=== PATIENT | female | born 1950 | race Caucasian/White ===

== ENCOUNTER 2020-05-18 01:45 | Inpatient (IN) ==
[2020-05-18] MEDS ORDERED: SODIUM CHLORIDE 0.9% 1000ML 500 ML IV ONE (02:21)
--- NOTE | 2020-05-18 02:25 | Emergency Department Note ---
History of Present Illness General Chief complaint: Urinary Symptoms Stated complaint: Urinary Symptoms Time Seen by Provider: 05/18/20 02:04 History of Present Illness Maximum Pain Intensity: 2 This is a 69-year-old female that presents to the emergency department via private vehicle with complaints of "urinary symptoms". The patient is concerned she may have urosepsis. Patient has a history of this and is often asymptomatic with this. 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 The patient notes that she is tested for Covid on a weekly basis. Her last test was Saturday. She notes that she is only notified with positive results and has had no positives thus far. The patient notes that she has not felt well over the past few days, and notes that her urine is dark and she is also had diarrhea for the past 3 days. She notes no dysuria, back pain or abdominal pain. No fevers, chills, chest pain, cough, loss of taste or smell. Patient notes no new shortness of breath. Home Medications Medication Instructions Recorded Confirmed Type No Known Home Medications 05/18/20 05/18/20 History Allergies Allergy/AdvReac Type Severity Reaction Status Date / Time No Known Allergies Allergy Verified 05/18/20 03:54 Past Med/Surg History Medical History Essential hypertension Hypercalcemia Hyperlipidemia Hyperparathyroidism Nephrolithiasis Nontoxic multinodular goiter Occlusion and stenosis of left carotid artery Raynaud's disease Surgical History S/P cataract extraction Family History (Updated 06/16/19 @ 11:56 by Monserrat Zamora MA) Mother Coronary heart disease Father Thrombocytopenia Social History Smoking Status: Never smoker Preferred Language: Niuean marital status: / Current Living Situation: Alone Feels Safe at Home: Yes Review of Systems A total of 10 systems reviewed and were otherwise negative Physical Exam Vital Signs Vital Signs - 24 hr 05/18/20 01:50 05/18/20 02:55 05/18/20 03:06 Temperature 37.5 C Temperature Source Oral Pulse Rate 96 H Pulse Rate [Right Ear Lobe] 88 Respiratory Rate 22 22 Respiratory Depth Normal Blood Pressure 132/75 Blood Pressure [Right Arm] 139/75 Blood Pressure Mean 94 Blood Pressure Mean [Right Arm] 96 Pulse Oximetry 95 87 L Oxygen Delivery Method Room Air Nasal Cannula Room Air Oxygen Flow Rate 3 Sepsis Recent Fever Within 48 Hours No Sepsis New/Unexplained Change in Mental Status No Sepsis Action Taken by Nursing No Action Required 05/18/20 04:15 Temperature Temperature Source Pulse Rate Pulse Rate [Right Ear Lobe] 87 Respiratory Rate 22 Respiratory Depth Blood Pressure Blood Pressure [Right Arm] 124/75 Blood Pressure Mean Blood Pressure Mean [Right Arm] 91 Pulse Oximetry 94 Oxygen Delivery Method Nasal Cannula Oxygen Flow Rate 4 Sepsis Recent Fever Within 48 Hours Sepsis New/Unexplained Change in Mental Status Sepsis Action Taken by Nursing VITAL SIGNS - Vital signs and nursing notes were reviewed. Afebrile. Hypoxic. GENERAL - 69-year-old female appearing her stated age who is in no acute distress but appears fatigued. Communicates well with provider and answers questions appropriately. SKIN - Without rashes. HEAD - NC/AT. EYES - PERRL with EOMI bilaterally. Sclera anicteric. EARS - No deformities of external structures noted on gross examination bilaterally. NOSE - Midline and without cyanosis. No epistaxis or purulent drainage noted. MOUTH/OROPHARYNX - Without perioral cyanosis. NECK - Neck with FROM. No nuchal rigidity. LUNGS - Chest wall symmetric without accessory muscle use, intercostals retractions, or central cyanosis. Normal vesicular breath sounds CTA B/L. No wheezes, rales, or rhonchi appreciated. CARDIAC - RRR with S1/S2. No murmur, rubs, or gallops appreciated. EXTREMITIES - No clubbing or peripheral cyanosis. No pretibial edema present. +5/5 strength noted in UE/LE bilaterally. NEUROLOGIC - Cranial nerves II through XII grossly intact. Sensory intact to light touch throughout. PSYCH - A&O, and cooperates fully with examiner. Pt is very pleasant and interacts well with examiner. Course Administered Medications Lactated Ringer's (Lr) 1,000 mls @ 80 mls/hr IV .[id number] Stop: 05/18/20 18:59 Last Admin: 05/18/20 07:01 Dose: 80 mls/hr Documented by: [id number] Discontinued Medications Sodium Chloride (Nss 1000ml) 500 mls @ 999 mls/hr IV .[id number] Stop: 05/18/20 02:51 Last Infusion: 05/18/20 05:33 Dose: 0 mls/hr Documented by: [id number] Admin: 05/18/20 04:20 Dose: 999 mls/hr Documented by: [id number] Medical Decision Making Laboratory Data Result diagrams: 05/18/20 03:51 05/18/20 03:51 Lab Results 05/18/20 05/18/20 05/18/20 Range/Units 02:38 02:38 03:51 WBC 4.58 L (4.8-10.8) K/uL RBC 4.35 (4.2-5.4) M/uL Hgb 13.7 (12.0-16.0) g/dL Hct 41.9 (37-47) % MCV 96.3 (80-100) fL MCH 31.5 (25-34) pg MCHC 32.7 (32-36) g/dL RDW Std Deviation 49.5 H (36.4-46.3) fL RDW Coeff of Sean 14.0 (11.5-14.5) % Plt Count 173 (130-400) K/uL MPV 12.2 H (7.4-10.4) fL Immature Gran % (Auto) 0.0 % Neut % (Auto) 80.1 % Lymph % (Auto) 14.2 % [place] % (Auto) 5.5 % Eos % (Auto) 0.0 % Baso % (Auto) 0.2 % Neut # (Auto) 3.67 (1.4-6.5) K/uL Lymph # (Auto) 0.65 L (1.2-3.4) K/uL [place] # (Auto) 0.25 (0.11-0.59) K/uL Eos # (Auto) 0.00 (0-0.5) K/uL Baso # (Auto) 0.01 (0-0.2) K/uL Immature Gran # (Auto) 0.00 (0.00-0.02) K/uL Sodium (136-145) mmol/L Potassium (3.5-5.1) mmol/L Chloride (98-107) mmol/L Carbon Dioxide (21-32) mmol/L Anion Gap (3-11) BUN (7-18) mg/dl Creatinine (0.6-1.2) mg/dl Est Cr Clr Drug Dosing ml/min Est GFR ( Amer) Est GFR (Non-Af Amer) BUN/Creatinine Ratio (10-20) Glucose (70-99) mg/dl Lactate (0.4-2.0) mmol/L Calcium (8.5-10.1) mg/dl Total Bilirubin (0.2-1) mg/dl AST (15-37) U/L ALT (12-78) U/L Alkaline Phosphatase (45-117) U/L Total Protein (6.4-8.2) gm/dl Albumin (3.4-5.0) gm/dl Globulin (2.5-4.0) gm/dl Albumin/Globulin Ratio (0.9-2) Procalcitonin (0-0.5) ng/ml Urine Color Urine Appearance (Clear) Urine pH (4.5-7.5) Ur Specific [place] (1.000-1.030) Urine Protein (Negative) Urine Glucose (UA) (Negative) Urine Ketones (Negative) Urine Blood (Negative) Urine Nitrite (Negative) Urine Bilirubin (Negative) Urine Urobilinogen (Negative) Ur Leukocyte Esterase (Negative) Urine WBC (Auto) (0-5) /hpf Urine RBC (Auto) (0-4) /hpf U Hyaline Cast (Auto) (0-5) /lpf U Epithel Cells (Auto) (0-5) /lpf Urine Bacteria (Auto) (Negative) COVID-19 Eval Order Covid19 IDNow Count includes the [facility] SARS-CoV-2, RNA, NAAT POSITIVE A* (NEGATIVE) 05/18/20 05/18/20 05/18/20 Range/Units 03:51 03:51 03:51 WBC (4.8-10.8) K/uL RBC (4.2-5.4) M/uL Hgb (12.0-16.0) g/dL Hct (37-47) % MCV (80-100) fL MCH (25-34) pg MCHC (32-36) g/dL RDW Std Deviation (36.4-46.3) fL RDW Coeff of Sean (11.5-14.5) % Plt Count (130-400) K/uL MPV (7.4-10.4) fL Immature Gran % (Auto) % Neut % (Auto) % Lymph % (Auto) % [place] % (Auto) % Eos % (Auto) % Baso % (Auto) % Neut # (Auto) (1.4-6.5) K/uL Lymph # (Auto) (1.2-3.4) K/uL [place] # (Auto) (0.11-0.59) K/uL Eos # (Auto) (0-0.5) K/uL Baso # (Auto) (0-0.2) K/uL Immature Gran # (Auto) (0.00-0.02) K/uL Sodium 138 (136-145) mmol/L Potassium 3.6 (3.5-5.1) mmol/L Chloride 109 H (98-107) mmol/L Carbon Dioxide 22 (21-32) mmol/L Anion Gap 7.0 (3-11) BUN 14 (7-18) mg/dl Creatinine 0.88 (0.6-1.2) mg/dl Est Cr Clr Drug Dosing 62.5 ml/min Est GFR ( Amer) 78.8 Est GFR (Non-Af Amer) 68.0 BUN/Creatinine Ratio 15.5 (10-20) Glucose 101 H (70-99) mg/dl Lactate 1.1 (0.4-2.0) mmol/L Calcium 9.4 (8.5-10.1) mg/dl Total Bilirubin 0.9 (0.2-1) mg/dl AST 23 (15-37) U/L ALT 12 (12-78) U/L Alkaline Phosphatase 71 (45-117) U/L Total Protein 7.3 (6.4-8.2) gm/dl Albumin 2.9 L (3.4-5.0) gm/dl Globulin 4.4 H (2.5-4.0) gm/dl Albumin/Globulin Ratio 0.7 L (0.9-2) Procalcitonin < 0.05 (0-0.5) ng/ml Urine Color Urine Appearance (Clear) Urine pH (4.5-7.5) Ur Specific [place] (1.000-1.030) Urine Protein (Negative) Urine Glucose (UA) (Negative) Urine Ketones (Negative) Urine Blood (Negative) Urine Nitrite (Negative) Urine Bilirubin (Negative) Urine Urobilinogen (Negative) Ur Leukocyte Esterase (Negative) Urine WBC (Auto) (0-5) /hpf Urine RBC (Auto) (0-4) /hpf U Hyaline Cast (Auto) (0-5) /lpf U Epithel Cells (Auto) (0-5) /lpf Urine Bacteria (Auto) (Negative) COVID-19 Eval Order SARS-CoV-2, RNA, NAAT (NEGATIVE) 05/18/20 Range/Units 04:00 WBC (4.8-10.8) K/uL RBC (4.2-5.4) M/uL Hgb (12.0-16.0) g/dL Hct (37-47) % MCV (80-100) fL MCH (25-34) pg MCHC (32-36) g/dL RDW Std Deviation (36.4-46.3) fL RDW Coeff of Sean (11.5-14.5) % Plt Count (130-400) K/uL MPV (7.4-10.4) fL Immature Gran % (Auto) % Neut % (Auto) % Lymph % (Auto) % [place] % (Auto) % Eos % (Auto) % Baso % (Auto) % Neut # (Auto) (1.4-6.5) K/uL Lymph # (Auto) (1.2-3.4) K/uL [place] # (Auto) (0.11-0.59) K/uL Eos # (Auto) (0-0.5) K/uL Baso # (Auto) (0-0.2) K/uL Immature Gran # (Auto) (0.00-0.02) K/uL Sodium (136-145) mmol/L Potassium (3.5-5.1) mmol/L Chloride (98-107) mmol/L Carbon Dioxide (21-32) mmol/L Anion Gap (3-11) BUN (7-18) mg/dl Creatinine (0.6-1.2) mg/dl Est Cr Clr Drug Dosing ml/min Est GFR ( Amer) Est GFR (Non-Af Amer) BUN/Creatinine Ratio (10-20) Glucose (70-99) mg/dl Lactate (0.4-2.0) mmol/L Calcium (8.5-10.1) mg/dl Total Bilirubin (0.2-1) mg/dl AST (15-37) U/L ALT (12-78) U/L Alkaline Phosphatase (45-117) U/L Total Protein (6.4-8.2) gm/dl Albumin (3.4-5.0) gm/dl Globulin (2.5-4.0) gm/dl Albumin/Globulin Ratio (0.9-2) Procalcitonin (0-0.5) ng/ml Urine Color Dark Yellow Urine Appearance Cloudy A (Clear) Urine pH 5.5 (4.5-7.5) Ur Specific [place] 1.021 (1.000-1.030) Urine Protein 2+ H (Negative) Urine Glucose (UA) Negative (Negative) Urine Ketones Trace H (Negative) Urine Blood 2+ H (Negative) Urine Nitrite Positive A (Negative) Urine Bilirubin Negative (Negative) Urine Urobilinogen Negative (Negative) Ur Leukocyte Esterase 2+ H (Negative) Urine WBC (Auto) >30 H (0-5) /hpf Urine RBC (Auto) 10-30 H (0-4) /hpf U Hyaline Cast (Auto) 1-5 (0-5) /lpf U Epithel Cells (Auto) 10-20 H (0-5) /lpf Urine Bacteria (Auto) 4+ H (Negative) COVID-19 Eval Order SARS-CoV-2, RNA, NAAT (NEGATIVE) MDM Narrative Patient was seen and evaluated as above in room A04. Review was performed of nursing notes and vital signs. I did review pertinent previous visits and patient history. After obtaining a thorough history and physical examination the above work up was performed. She presents to us today with concern of urosepsis noting a history of this. She notes that she is often asymptomatic for this. No chest pain or shortness of breath. 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 She was last tested on Saturday and was negative she believes. On examination the patient does appear to be fatigued. No increased work of breathing. Pulse ox was obtained and was 87% on room air. She was started on oxygen. Labs were drawn. There is mild decrease white blood cell count 4.58 without anemia. No emergent metabolic disturbance. Covid testing positive. Pro-Nicolas negative. Urinalysis is concerning for UTI. She will be started on ceftriaxone per medicine team. I believe that she requires admission for further evaluation and management noting her hypoxia in the setting of Covid as well as UTI. Please refer to further documentation regarding her stay. Case was discussed with the attending physician. Chest x-ray concerning for diffuse patchy mild infiltrates. No definite consolidation. GCS: 15 In the evaluation and treatment of this patient the following differential diagnoses were entertained: COVID-19, pneumonia, MT, PE, UTI, sepsis, among others. Impression & Plan COVID-19, Hypoxia, UTI (urinary tract infection) Discharge Plan Visit Data Chief Complaint: Urinary Symptoms Stated Complaint: Urinary Symptoms ED Provider: Rhoda Guzmán ED Midlevel Provider: Lambert Dickey Discharge Problem: COVID-19, Hypoxia, UTI (urinary tract infection) Patient Disposition: Admitted As Inpatient Condition: Good Discharge Instructions Interventions: ED Discharge Assessment Last Done: 05/18/20 05:39
[2020-05-18 04:03] LABS: Basophils # (auto) 0.01 K/uL (0-0.2); Basophils % (auto) 0.2 %; Hematocrit (blood only) 41.9 % (37-47); Hemoglobin 13.7 g/dL (12.0-16.0); Lymphocytes # (auto) 0.65 K/uL (1.2-3.4); Lymphocytes % (auto) 14.2 %; Mean Corpuscular Hemoglobin 31.5 pg (25-34); Mean Corpuscular Hgb Conc 32.7 g/dL (32-36); Mean Corpuscular Volume 96.3 fL (80-100); Mean Platelet Volume 12.2 fL (7.4-10.4); Monocytes # (auto) 0.25 K/uL (0.11-0.59); Monocytes % (auto) 5.5 %; Neutrophils # (auto) 3.67 K/uL (1.4-6.5); Neutrophils % (auto) 80.1 %; Platelet Count 173 K/uL (130-400); RDW Standard Deviation 49.5 fL (36.4-46.3); Red Blood Count 4.35 M/uL (4.2-5.4); White Blood Count 4.58 K/uL (4.8-10.8)
[2020-05-18 04:17] LABS: Potassium 3.6 mmol/L (3.5-5.1)
[2020-05-18 04:19] LABS: Albumin Level 2.9 gm/dl (3.4-5.0); BUN Creatinine Ratio 15.5 (10-20); Calcium 9.4 mg/dl (8.5-10.1); Creatinine Clr Calc Pharmacy 62.5 ml/min; Est GFR (African American) 78.8
[2020-05-18 04:22] LABS: Albumin Globulin Ratio 0.7 (0.9-2); Bilirubin,Total 0.9 mg/dl (0.2-1); Globulin 4.4 gm/dl (2.5-4.0); Total Protein 7.3 gm/dl (6.4-8.2)
[2020-05-18 04:29] LABS: Appearance Urine Cloudy (Clear); Bacteria Urine Automated 4+ (Negative); Bilirubin Urine Negative (Negative); Blood Urine 2+ (Negative); Color Urine Dark Yellow; Glucose Urine UA Negative (Negative); Ketones Urine Trace (Negative); Leukocyte Esterase Urine 2+ (Negative); Nitrite Urine Positive (Negative); Protein Urine 2+ (Negative); Specific Gravity Urine 1.021 (1.000-1.030); Urobilinogen Urine Negative (Negative); WBC Urine Automated >30 /hpf (0-5); pH Urine 5.5 (4.5-7.5)
--- NOTE | 2020-05-18 04:53 | History & Physical Report ---
Date of Service May 18, 2020 Assessment & Plan (1) COVID-19: 69yo female with Covid-19 infection, hypoxic on arrival now doing well on supplemental O2 - 94% on 4L NC -Admit to medical -Maintain precautions, airborne and contact -Check inflammatory markers - ESR, CRP, Ferritin, Ddimer, LDH -Dexamethasone 6mg IV daily -Pepcid 20mg IV daily -Zinc 220mg po daily -Patient is reluctant to receive convalescent plasma or Remdesivir at this time. She has a non-specific autoimmune disorder and is concerned that these medications may cause a problem. Liver and renal function are intact. -Patient expresses desire to go home with O2 if possible Present on Admission?: Yes (2) UTI (urinary tract infection): Patient with +UA, denies urinary complaints. States that she sometimes becomes ill from UTIs -Follow culture -Ceftriaxone 1gm IV daily Present on Admission?: Yes (3) Hyperlipidemia: Chronic. Stable -No home medications listed Present on Admission?: Yes (4) Essential hypertension: Chronic. Stable -No home medications listed -Continue to monitor F/E/N - LR at 80mL/hr x 1 liter, electrolytes WNL, Heart healthy diet as tolerated Ppx - Lovenox 40 BID Code - FULL Dispo - Admit to medical Present on Admission?: Yes History of Present Illness Chief Complaint: diarrhea Primary Care Provider: Celine Hammond MD Monserrat Castillo is a pleasant 69yo C female with history of HTN, HLP presenting with Covid-19. 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 She reports multiple staff members and residents positive for Covid-19. Patient developed watery diarrhea two days ago. She has mild shortness of breath. She is tested routinely at work and was last tested 4 days ago and was negative. Denies CP/Palpitations/cough/loss of taste or smell Patient's saturations in triage found to be 77% on room air - however, she states that because of her Raynaud's her saturations are always low. An additional pulse oximeter was placed and she was found to be 84% on room air with adequate wave form. She improved with supplemental O2 and is currently 94% on 4L. Patient wishes to be discharged home as soon as possible and is confident that she can care for herself at home. Allergies Allergy/AdvReac Type Severity Reaction Status Date / Time No Known Allergies Allergy Verified 05/18/20 03:54 Home Medications Medication Instructions Recorded Confirmed Type No Known Home Medications 05/18/20 05/18/20 History Past Med/Surg History Medical History (Updated 05/18/20 @ 04:52 by Sydni Cohen DO) Essential hypertension Hypercalcemia Hyperlipidemia Hyperparathyroidism Nephrolithiasis Nontoxic multinodular goiter Occlusion and stenosis of left carotid artery Raynaud's disease Surgical History (Updated 03/04/19 @ 22:59 by Celine Hammond MD) S/P cataract extraction Family History (Updated 06/16/19 @ 11:56 by Monserrat Zamora MA) Mother Coronary heart disease Father Thrombocytopenia Social History (Updated 04/22/19 @ 10:52 by Michelle Higgins MA) Smoking Status: Never smoker Preferred Language: [place] Islander marital status: / Current Living Situation: Alone Feels Safe at Home: Yes Review of Systems Review of Systems: All systems reviewed & are unremarkable except as noted in HPI & below Physical Exam Physical Exam: General: patient resting comfortably, NAD, non-toxic in appearance, AA&O x 4 Skin: warm, dry, intact, no rashes or lesions HEENT: NC/AT, PERRL, EOMI, anicteric sclera, conjunctiva without injection, external ear normal to inspection and nontender, nares patent, moist mucus membranes, dentition intact, no oropharyngeal lesions, neck supple, trachea midline, no LAD, no thyromegaly, no JVD Heart: +S1/S2, regular, no m/r/g Lungs: equal air entry bilaterally, no rales/rhonchi/wheezes Abd: +BS, soft, NT/ND, no masses/organomegaly/ascites Ext: warm, 2+ pulses in UE/LE bilaterally, no clubbing/cyanosis or edema Neuro: nonfocal, patient AA&O x 4, speech intact, no facial droop, moving all extremities on command with equal strength 5/5 Results & Data Results & Data ([facility]) Vital Signs (Past 12 Hours) Vital Signs Temp Pulse Pulse Resp BP BP Pulse Ox 05/18/20 04:15 87 22 124/75 94 05/18/20 03:06 87 L 05/18/20 02:55 88 22 139/75 95 05/18/20 01:50 37.5 C 96 H 22 132/75 Laboratory Results Lab Results 05/18/20 05/18/20 05/18/20 Range/Units 02:38 02:38 03:51 WBC 4.58 L (4.8-10.8) K/uL RBC 4.35 (4.2-5.4) M/uL Hgb 13.7 (12.0-16.0) g/dL Hct 41.9 (37-47) % MCV 96.3 (80-100) fL MCH 31.5 (25-34) pg MCHC 32.7 (32-36) g/dL RDW Std Deviation 49.5 H (36.4-46.3) fL RDW Coeff of Sean 14.0 (11.5-14.5) % Plt Count 173 (130-400) K/uL MPV 12.2 H (7.4-10.4) fL Immature Gran % (Auto) 0.0 % Neut % (Auto) 80.1 % Lymph % (Auto) 14.2 % [place] % (Auto) 5.5 % Eos % (Auto) 0.0 % Baso % (Auto) 0.2 % Neut # (Auto) 3.67 (1.4-6.5) K/uL Lymph # (Auto) 0.65 L (1.2-3.4) K/uL [place] # (Auto) 0.25 (0.11-0.59) K/uL Eos # (Auto) 0.00 (0-0.5) K/uL Baso # (Auto) 0.01 (0-0.2) K/uL Immature Gran # (Auto) 0.00 (0.00-0.02) K/uL Sodium (136-145) mmol/L Potassium (3.5-5.1) mmol/L Chloride (98-107) mmol/L Carbon Dioxide (21-32) mmol/L Anion Gap (3-11) BUN (7-18) mg/dl Creatinine (0.6-1.2) mg/dl Est Cr Clr Drug Dosing ml/min Est GFR ( Amer) Est GFR (Non-Af Amer) BUN/Creatinine Ratio (10-20) Glucose (70-99) mg/dl Lactate (0.4-2.0) mmol/L Calcium (8.5-10.1) mg/dl Total Bilirubin (0.2-1) mg/dl AST (15-37) U/L ALT (12-78) U/L Alkaline Phosphatase (45-117) U/L Total Protein (6.4-8.2) gm/dl Albumin (3.4-5.0) gm/dl Globulin (2.5-4.0) gm/dl Albumin/Globulin Ratio (0.9-2) Urine Color Urine Appearance (Clear) Urine pH (4.5-7.5) Ur Specific [place] (1.000-1.030) Urine Protein (Negative) Urine Glucose (UA) (Negative) Urine Ketones (Negative) Urine Blood (Negative) Urine Nitrite (Negative) Urine Bilirubin (Negative) Urine Urobilinogen (Negative) Ur Leukocyte Esterase (Negative) Urine WBC (Auto) (0-5) /hpf Urine RBC (Auto) (0-4) /hpf U Hyaline Cast (Auto) (0-5) /lpf U Epithel Cells (Auto) (0-5) /lpf Urine Bacteria (Auto) (Negative) COVID-19 Eval Order Covid19 IDNow atMMIC SARS-CoV-2, RNA, NAAT POSITIVE A* (NEGATIVE) 05/18/20 05/18/20 05/18/20 Range/Units 03:51 03:51 04:00 WBC (4.8-10.8) K/uL RBC (4.2-5.4) M/uL Hgb (12.0-16.0) g/dL Hct (37-47) % MCV (80-100) fL MCH (25-34) pg MCHC (32-36) g/dL RDW Std Deviation (36.4-46.3) fL RDW Coeff of Sean (11.5-14.5) % Plt Count (130-400) K/uL MPV (7.4-10.4) fL Immature Gran % (Auto) % Neut % (Auto) % Lymph % (Auto) % [place] % (Auto) % Eos % (Auto) % Baso % (Auto) % Neut # (Auto) (1.4-6.5) K/uL Lymph # (Auto) (1.2-3.4) K/uL [place] # (Auto) (0.11-0.59) K/uL Eos # (Auto) (0-0.5) K/uL Baso # (Auto) (0-0.2) K/uL Immature Gran # (Auto) (0.00-0.02) K/uL Sodium 138 (136-145) mmol/L Potassium 3.6 (3.5-5.1) mmol/L Chloride 109 H (98-107) mmol/L Carbon Dioxide 22 (21-32) mmol/L Anion Gap 7.0 (3-11) BUN 14 (7-18) mg/dl Creatinine 0.88 (0.6-1.2) mg/dl Est Cr Clr Drug Dosing 62.5 ml/min Est GFR ( Amer) 78.8 Est GFR (Non-Af Amer) 68.0 BUN/Creatinine Ratio 15.5 (10-20) Glucose 101 H (70-99) mg/dl Lactate 1.1 (0.4-2.0) mmol/L Calcium 9.4 (8.5-10.1) mg/dl Total Bilirubin 0.9 (0.2-1) mg/dl AST 23 (15-37) U/L ALT 12 (12-78) U/L Alkaline Phosphatase 71 (45-117) U/L Total Protein 7.3 (6.4-8.2) gm/dl Albumin 2.9 L (3.4-5.0) gm/dl Globulin 4.4 H (2.5-4.0) gm/dl Albumin/Globulin Ratio 0.7 L (0.9-2) Urine Color Dark Yellow Urine Appearance Cloudy A (Clear) Urine pH 5.5 (4.5-7.5) Ur Specific [place] 1.021 (1.000-1.030) Urine Protein 2+ H (Negative) Urine Glucose (UA) Negative (Negative) Urine Ketones Trace H (Negative) Urine Blood 2+ H (Negative) Urine Nitrite Positive A (Negative) Urine Bilirubin Negative (Negative) Urine Urobilinogen Negative (Negative) Ur Leukocyte Esterase 2+ H (Negative) Urine WBC (Auto) >30 H (0-5) /hpf Urine RBC (Auto) 10-30 H (0-4) /hpf U Hyaline Cast (Auto) 1-5 (0-5) /lpf U Epithel Cells (Auto) 10-20 H (0-5) /lpf Urine Bacteria (Auto) 4+ H (Negative) COVID-19 Eval Order SARS-CoV-2, RNA, NAAT (NEGATIVE) Code Status & VTE Plan VTE Prophylaxis Plan VTE Prophylaxis will be ordered: Yes PG Care Time/CCT Total # of Minutes Spent Total Time Spent with Patient: Total time spent is greater than 50% in coordination of care (as documented) at patient's floor/unit and/or counseling patient: Coding Level of Care Code 27300 Initial Inpt Care Lvl 3 Diagnoses COVID-19 U07.1 UTI (urinary tract infection) N39.0; R31.9 Urinary tract infection type: site unspecified Hematuria presence: with hematuria Hyperlipidemia E78.5 Hyperlipidemia type: unspecified Essential hypertension I10 (1) Hyperlipidemia Hyperlipidemia type: unspecified Qualified Code(s): E78.5 - Hyperlipidemia, unspecified (2) UTI (urinary tract infection) Urinary tract infection type: site unspecified Hematuria presence: with hematuria Qualified Code(s): N39.0 - Urinary tract infection, site not specified; R31.9 - Hematuria, unspecified
[2020-05-18] MEDS ORDERED: ACETAMINOPHEN 325 MG TAB PO PRN (06:30)
[2020-05-18] MEDS ORDERED: ONDANSETRON INJ 2 MG/ML 2 ML VIAL IV PRN (06:30)
[2020-05-18] MEDS ORDERED: DEXAMETHASONE SOD INJ 10 MG/ML VIAL IV SCH (06:30)
[2020-05-18] MEDS ORDERED: LACTATED RINGER'S 1,000 ML IV SCH (06:30)
--- NOTE | 2020-05-18 08:08 | XRay Report ---
XR chest 1V portable HISTORY: covid +, hypoxia COMPARISON: None. FINDINGS: Cardiac silhouette is mildly enlarged. No pleural effusions. No pneumothorax. Old, healed l eft-sided rib fractures. There is mild diffuse interstitial thickening. This most pronounced within t he right lung. This could represent mild asymmetric congestive change. Right perihilar hazy appearanc e could be due to the interstitial thickening or developing airspace opacities. IMPRESSION: 1. Cardiomegaly with mild congestive change. 2. Right perihilar hazy appearance could be due to interstitial thickening or developing airspace opa cities. ACT 112: Negative or not required by law. Electronically signed by: Troy Morrissey M.D. 05/18/2020 8:07 AM
[2020-05-18 08:11] LABS: INR 1.2 (0.9-1.1); Prothrombin Time 12.8 Seconds (9.0-12.0)
[2020-05-18] MEDS: ZINC SULFATE 220 MG CAPSULE PO SCH (08:11)
[2020-05-18] MEDS: ENOXAPARIN INJ 40 MG/0.4 ML SYR SQ SCH ×2 (08:11→21:49)
[2020-05-18] MEDS: DEXAMETHASONE SOD PHOSPHATE 6 MG in SYRINGE 0 ML IV SCH (08:11)
[2020-05-18] MEDS: FAMOTIDINE 20 MG in SYRINGE 3 ML IV SCH (08:11)
[2020-05-18 08:19] LABS: C Reactive Protein 1.92 mg/dl (0-0.29); D Dimer 1010 ug/L FEU (0-500)
[2020-05-18] MEDS ORDERED: INFLUENZA VIRUS QUAD VACCINE 0.5 ML SYR IM ONE (08:24)
[2020-05-18] MEDS ORDERED: INFLUENZA ADMINISTRATION CHARGE ONE (08:24)
[2020-05-18] MEDS ORDERED: PNEUMOCOCCAL POLYSACCHARIDES 25 MCG/0.5 ML VIAL/SYR IM ONE (08:24)
[2020-05-18] MEDS ORDERED: PNEUMOCOCCAL ADMINISTRATION CHARGE ONE (08:24)
[2020-05-18] MEDS ORDERED: cefTRIAXone SODIUM 1,000 MG in DEXTROSE 5% 50 ML IV SCH (09:00)
[2020-05-18] MEDS ORDERED: REMDESIVIR 200 MG in SODIUM CHLORIDE 0.9% 210 ML IV STA (15:07)
[2020-05-18 16:11] LABS: Magnesium 2.1 mg/dl (1.8-2.4); Troponin I 0.073 ng/ml (0-0.045)
--- NOTE | 2020-05-18 16:53 | XRay Report ---
SINGLE VIEW CHEST CLINICAL HISTORY: Worsening rales on physical examination. Covid. FINDINGS: An AP, portable, upright chest radiograph is compared to study performed earlier the same d ay 05/18/2020. The examination is degraded by portable technique, apical lordotic positioning, and pa tient rotation. The heart is enlarged noting atherosclerotic calcification of the thoracic aorta. Int erstitial haziness is similar to previous. No large pleural effusion or pneumothorax is seen. The ske letal structures are osteopenic. The bony thorax is grossly intact. IMPRESSION: 1. Cardiomegaly with evidence of mild congestive failure. 2. Haziness of the interstitium is unchanged and may represent mild edema versus an infectious/inflam matory pneumonitis. Clinical correlation will be required. ACT 112: Negative or not required by law. Electronically signed by: Doug Bauman M.D. 05/18/2020 4:51 PM
[2020-05-18] MEDS ORDERED: POTASSIUM CHLORIDE CRTAB 20 MEQ TABCR PO STA (16:55)
[2020-05-18] MEDS ORDERED: FUROSEMIDE 20 MG in SYRINGE 0 ML IV ONE (17:15)
[2020-05-18] MEDS: SODIUM CHLORIDE 0.9% 10ML FLUSH IV SCH (18:41)
--- NOTE | 2020-05-18 20:25 | Hospitalist Progress Note ---
Date of Service May 18, 2020 Assessment & Plan (1) Pneumonia due to COVID-19 virus: Day #1 of decadron. AGREEABLE to convalescent plasma - risks/benefits discussed. Consent obtained. FDA-issued patient info sheet to be given. Start remdesivir. repeat cxr given worsening rales. (2) Acute respiratory failure with hypoxia: 2nd to COVID-19 pneumonia. see above. (3) UTI (urinary tract infection): increase rocephin to 2gm daily await culture (4) Hyperlipidemia: Chronic. Stable No home medications listed (5) Essential hypertension: Chronic. Stable/controlled, and No home medications listed (6) Acute diastolic (congestive) heart failure: has JVD on exam, and mild edema on chest x-ray. stop IVF. lasix 20mg IV x 1. consider echo. re-eval tomorrow. (7) Raynaud's disease: noted (8) DVT prophylaxis: lovenox 40mg BID due to COVID-19 infection & high risk of VTE Admission and Anticipated Discharge Date Admission Date: May 18, 2020 Subjective patient had O2 off when I came into the room. I checked her O2 sats on 2 oximeters - both registered 82-83%. she said "My oxygen is low many times. (??) I put 3 l NC back on her and O2 sats improved to 93%. we had lengthy discussion about plasma and remdesivir. she ultimately agreed to both. she reports ongoing diarrhea, poor appetite, cough, weakness. can't pinpoint exact date of illness but she tested negative at her workplace this past weekend. Physical Exam Constitutional: + ill appearing; no acute distress and no altered mental status ENMT: Mouth: + dry oral mucous membranes Respiratory: no respiratory distress Auscultation: + crackles (extensive left lung, mild right lung base); no wheezes Cardiovascular: Rate/Rhythm: regular rate and regular rhythm Heart Sounds: normal S1 and normal S2; no murmur Vessels: + JVD, posterior tibial pulses present and dorsalis pedis pulses present Extremities: + edema (trace b/l; left leg is larger than right leg ) Gastrointestinal (Abdomen): normal bowel sounds, soft, nontender, no hepatosplenomegaly Psychiatric: A+Ox3, euthymic affect Results & Data Results & Data ([facility]) Vital Signs (Past 12 Hours) Vital Signs Temp Pulse BP Pulse Ox 05/18/20 16:28 36.5 C 65 111/53 L 93 Laboratory Results Laboratory Results - last 24 hr 05/18/20 05/18/20 05/18/20 02:38 02:38 03:51 WBC 4.58 L RBC 4.35 Hgb 13.7 Hct 41.9 MCV 96.3 MCH 31.5 MCHC 32.7 RDW Std Deviation 49.5 H RDW Coeff of Sean 14.0 Plt Count 173 MPV 12.2 H Immature Gran % (Auto) 0.0 Neut % (Auto) 80.1 Lymph % (Auto) 14.2 [place] % (Auto) 5.5 Eos % (Auto) 0.0 Baso % (Auto) 0.2 Neut # (Auto) 3.67 Lymph # (Auto) 0.65 L [place] # (Auto) 0.25 Eos # (Auto) 0.00 Baso # (Auto) 0.01 Immature Gran # (Auto) 0.00 ESR PT INR D-Dimer Sodium Potassium Chloride Carbon Dioxide Anion Gap BUN Creatinine Est Cr Clr Drug Dosing Est GFR ( Amer) Est GFR (Non-Af Amer) BUN/Creatinine Ratio Glucose Lactate Calcium Magnesium Ferritin Total Bilirubin AST ALT Alkaline Phosphatase Lactate Dehydrogenase Troponin I C-Reactive Protein NT-Pro-B Natriuret Pep Total Protein Albumin Globulin Albumin/Globulin Ratio Procalcitonin Urine Color Urine Appearance Urine pH Ur Specific [place] Urine Protein Urine Glucose (UA) Urine Ketones Urine Blood Urine Nitrite Urine Bilirubin Urine Urobilinogen Ur Leukocyte Esterase Urine WBC (Auto) Urine RBC (Auto) U Hyaline Cast (Auto) U Epithel Cells (Auto) Urine Bacteria (Auto) COVID-19 Eval Order Covid19 [facility]Now [facility] SARS-CoV-2, RNA, NAAT POSITIVE A* Blood Type Antibody Screen 05/18/20 05/18/20 05/18/20 03:51 03:51 03:51 WBC RBC Hgb Hct MCV MCH MCHC RDW Std Deviation RDW Coeff of Sean Plt Count MPV Immature Gran % (Auto) Neut % (Auto) Lymph % (Auto) [place] % (Auto) Eos % (Auto) Baso % (Auto) Neut # (Auto) Lymph # (Auto) [place] # (Auto) Eos # (Auto) Baso # (Auto) Immature Gran # (Auto) ESR PT INR D-Dimer Sodium 138 Potassium 3.6 Chloride 109 H Carbon Dioxide 22 Anion Gap 7.0 BUN 14 Creatinine 0.88 Est Cr Clr Drug Dosing 62.5 Est GFR ( Amer) 78.8 Est GFR (Non-Af Amer) 68.0 BUN/Creatinine Ratio 15.5 Glucose 101 H Lactate 1.1 Calcium 9.4 Magnesium Ferritin Total Bilirubin 0.9 AST 23 ALT 12 Alkaline Phosphatase 71 Lactate Dehydrogenase Troponin I C-Reactive Protein NT-Pro-B Natriuret Pep Total Protein 7.3 Albumin 2.9 L Globulin 4.4 H Albumin/Globulin Ratio 0.7 L Procalcitonin < 0.05 Urine Color Urine Appearance Urine pH Ur Specific [place] Urine Protein Urine Glucose (UA) Urine Ketones Urine Blood Urine Nitrite Urine Bilirubin Urine Urobilinogen Ur Leukocyte Esterase Urine WBC (Auto) Urine RBC (Auto) U Hyaline Cast (Auto) U Epithel Cells (Auto) Urine Bacteria (Auto) COVID-19 Eval Order SARS-CoV-2, RNA, NAAT Blood Type Antibody Screen 05/18/20 05/18/20 05/18/20 04:00 07:23 07:23 WBC RBC Hgb Hct MCV MCH MCHC RDW Std Deviation RDW Coeff of Sean Plt Count MPV Immature Gran % (Auto) Neut % (Auto) Lymph % (Auto) [place] % (Auto) Eos % (Auto) Baso % (Auto) Neut # (Auto) Lymph # (Auto) [place] # (Auto) Eos # (Auto) Baso # (Auto) Immature Gran # (Auto) ESR 30 H PT 12.8 H INR 1.2 H D-Dimer 1010 H* Sodium Potassium Chloride Carbon Dioxide Anion Gap BUN Creatinine Est Cr Clr Drug Dosing Est GFR ( Amer) Est GFR (Non-Af Amer) BUN/Creatinine Ratio Glucose Lactate Calcium Magnesium Ferritin Total Bilirubin AST ALT Alkaline Phosphatase Lactate Dehydrogenase Troponin I C-Reactive Protein NT-Pro-B Natriuret Pep Total Protein Albumin Globulin Albumin/Globulin Ratio Procalcitonin Urine Color Dark Yellow Urine Appearance Cloudy A Urine pH 5.5 Ur Specific [place] 1.021 Urine Protein 2+ H Urine Glucose (UA) Negative Urine Ketones Trace H Urine Blood 2+ H Urine Nitrite Positive A Urine Bilirubin Negative Urine Urobilinogen Negative Ur Leukocyte Esterase 2+ H Urine WBC (Auto) >30 H Urine RBC (Auto) 10-30 H U Hyaline Cast (Auto) 1-5 U Epithel Cells (Auto) 10-20 H Urine Bacteria (Auto) 4+ H COVID-19 Eval Order SARS-CoV-2, RNA, NAAT Blood Type Antibody Screen 05/18/20 05/18/20 05/18/20 07:23 07:23 15:24 WBC RBC Hgb Hct MCV MCH MCHC RDW Std Deviation RDW Coeff of Sean Plt Count MPV Immature Gran % (Auto) Neut % (Auto) Lymph % (Auto) [place] % (Auto) Eos % (Auto) Baso % (Auto) Neut # (Auto) Lymph # (Auto) [place] # (Auto) Eos # (Auto) Baso # (Auto) Immature Gran # (Auto) ESR PT INR D-Dimer Sodium Potassium Chloride Carbon Dioxide Anion Gap BUN Creatinine Est Cr Clr Drug Dosing Est GFR ( Amer) Est GFR (Non-Af Amer) BUN/Creatinine Ratio Glucose Lactate Calcium Magnesium Ferritin 147.0 Total Bilirubin AST ALT Alkaline Phosphatase Lactate Dehydrogenase 302 H Troponin I C-Reactive Protein 1.92 H NT-Pro-B Natriuret Pep Total Protein Albumin Globulin Albumin/Globulin Ratio Procalcitonin Urine Color Urine Appearance Urine pH Ur Specific [place] Urine Protein Urine Glucose (UA) Urine Ketones Urine Blood Urine Nitrite Urine Bilirubin Urine Urobilinogen Ur Leukocyte Esterase Urine WBC (Auto) Urine RBC (Auto) U Hyaline Cast (Auto) U Epithel Cells (Auto) Urine Bacteria (Auto) COVID-19 Eval Order SARS-CoV-2, RNA, NAAT Blood Type A Positive Antibody Screen NEGATIVE 05/18/20 15:24 WBC RBC Hgb Hct MCV MCH MCHC RDW Std Deviation RDW Coeff of Sean Plt Count MPV Immature Gran % (Auto) Neut % (Auto) Lymph % (Auto) [place] % (Auto) Eos % (Auto) Baso % (Auto) Neut # (Auto) Lymph # (Auto) [place] # (Auto) Eos # (Auto) Baso # (Auto) Immature Gran # (Auto) ESR PT INR D-Dimer Sodium Potassium Chloride Carbon Dioxide Anion Gap BUN Creatinine Est Cr Clr Drug Dosing Est GFR ( Amer) Est GFR (Non-Af Amer) BUN/Creatinine Ratio Glucose Lactate Calcium Magnesium 2.1 Ferritin Total Bilirubin AST ALT Alkaline Phosphatase Lactate Dehydrogenase Troponin I 0.073 H* C-Reactive Protein NT-Pro-B Natriuret Pep 9478 H Total Protein Albumin Globulin Albumin/Globulin Ratio Procalcitonin Urine Color Urine Appearance Urine pH Ur Specific [place] Urine Protein Urine Glucose (UA) Urine Ketones Urine Blood Urine Nitrite Urine Bilirubin Urine Urobilinogen Ur Leukocyte Esterase Urine WBC (Auto) Urine RBC (Auto) U Hyaline Cast (Auto) U Epithel Cells (Auto) Urine Bacteria (Auto) COVID-19 Eval Order SARS-CoV-2, RNA, NAAT Blood Type Antibody Screen PG Care Time/CCT Total # of Minutes Spent Total Time Spent with Patient: Total time spent is greater than 50% in coordination of care (as documented) at patient's floor/unit and/or counseling patient: Coding Level of Care Code 93179 Subseq Hosp Care Lvl 3 Diagnoses Pneumonia due to COVID-19 virus U07.1; J12.89 Acute respiratory failure with hypoxia J96.01 UTI (urinary tract infection) N30.00 Hematuria presence: without hematuria Urinary tract infection type: acute cystitis Hyperlipidemia E78.5 Hyperlipidemia type: unspecified Essential hypertension I10 Acute diastolic (congestive) heart failure I50.31 Raynaud's disease I73.00 Raynaud?s-associated gangrene presence: without gangrene DVT prophylaxis Z29.9 (1) UTI (urinary tract infection) Hematuria presence: without hematuria Urinary tract infection type: acute cystitis Qualified Code(s): N30.00 - Acute cystitis without hematuria (2) Raynaud's disease Raynaud?s-associated gangrene presence: without gangrene Qualified Code(s): I73.00 - Raynaud's syndrome without gangrene (3) Hyperlipidemia Hyperlipidemia type: unspecified Qualified Code(s): E78.5 - Hyperlipidemia, unspecified
[2020-05-18] MEDS: cefTRIAXone SODIUM 2,000 MG in DEXTROSE 5% 50 ML IV SCH (21:49)
[2020-05-19 08:01] LABS: BUN Creatinine Ratio 18.1 (10-20); Calcium 10.4 mg/dl (8.5-10.1); Creatinine Clr Calc Pharmacy 51.6 ml/min; Est GFR (African American) 62.9; Est GFR (Non-African American) 54.3
[2020-05-19] MEDS: DEXAMETHASONE SOD PHOSPHATE 6 MG in SYRINGE 0 ML IV SCH (08:29)
[2020-05-19] MEDS: ENOXAPARIN INJ 40 MG/0.4 ML SYR SQ SCH ×2 (08:29→21:47)
[2020-05-19] MEDS: FAMOTIDINE 20 MG in SYRINGE 3 ML IV SCH (08:30)
[2020-05-19 08:40] LABS: Hematocrit (blood only) 47.3 % (37-47); Hemoglobin 15.3 g/dL (12.0-16.0); Mean Corpuscular Hemoglobin 31.5 pg (25-34); Mean Corpuscular Hgb Conc 32.3 g/dL (32-36); Mean Corpuscular Volume 97.5 fL (80-100); Mean Platelet Volume 12.8 fL (7.4-10.4); Platelet Count 216 K/uL (130-400); RDW Standard Deviation 49.7 fL (36.4-46.3); Red Blood Count 4.85 M/uL (4.2-5.4); White Blood Count 6.43 K/uL (4.8-10.8)
[2020-05-19 08:58] LABS: D Dimer 660 ug/L FEU (0-500)
[2020-05-19 09:01] LABS: Potassium 4.6 mmol/L (3.5-5.1)
[2020-05-19 09:05] LABS: Magnesium 2.3 mg/dl (1.8-2.4)
[2020-05-19] MEDS: ZINC SULFATE 220 MG CAPSULE PO SCH (09:22)
[2020-05-19] MEDS ORDERED: FUROSEMIDE 20 MG in SYRINGE 0 ML IV SCH (17:30)
[2020-05-19] MEDS: REMDESIVIR 100 MG in SODIUM CHLORIDE 0.9% 230 ML IV SCH (17:49)
[2020-05-19] MEDS: SODIUM CHLORIDE 0.9% 10ML FLUSH IV SCH (19:57)
--- NOTE | 2020-05-19 20:41 | Hospitalist Progress Note ---
Date of Service May 19, 2020 Assessment & Plan (1) Pneumonia due to COVID-19 virus: Day #2 of decadron. Day #2 of remdesivir. We had very lengthy discussion about convalescent plasma again today. Answered her questions and addressed her concerns. She is finally feeling comfortable about getting it - transfuse now, followed by lasix 20mg IV x 1. Consent obtained yesterday. FDA-issued patient info sheet given yesterday. (2) Acute respiratory failure with hypoxia: 2nd to COVID-19 pneumonia. see above. (3) UTI (urinary tract infection): 2nd to staph species cont IV rocephin 2gm daily await final culture (4) Hyperlipidemia: Chronic. Stable No home medications listed (5) Essential hypertension: Chronic. Stable/controlled, on no meds for such (6) Acute diastolic (congestive) heart failure: still with considerable b/l rales uncertain if rales are due to COVID-19, underlying ILD, or acute CHF could have all 3 Rx her COVID with meds above lasix again today consider advanced imaging (CT) to r/o chronic ILD or other lung disease (7) Raynaud's disease: noted (8) DVT prophylaxis: lovenox 40mg BID due to COVID-19 infection & high risk of VTE left message for son on his voicemail yesterday and again today total visit time 35 minutes today, >50% of which was spent counseling the patient at bedside Admission and Anticipated Discharge Date Admission Date: May 18, 2020 Subjective patient ended up refusing the plasma when it arrived from the [place] overnight. during the visit today she had numerous concerns & questions about the plasma. apparently her father had ITP and she is worried the plasma will cause ITP in her. she continues with mild RICH and cough. diarrhea improving. appetite improving. still w/ O2 requirement. denies abd pain or chest pain. Review of Systems Constitutional: + fatigue and + anorexia; no fever and no chills Respiratory: no wheezing Cardiovascular: no chest pain Gastrointestinal: no nausea and no vomiting Physical Exam Constitutional: + ill appearing; no acute distress and no altered mental status ENMT: external ear and nose normal, oropharynx normal Respiratory: no respiratory distress Auscultation: + crackles (extensive left lung, mild right lung base - modestly less rales on L today ); no wheezes Cardiovascular: Rate/Rhythm: regular rate and regular rhythm Heart Sounds: normal S1, normal S2, + gallop (s3) and + murmur (2/6 systolic LSB) Vessels: + JVD (mildly improved today ), posterior tibial pulses present and dorsalis pedis pulses present Extremities: + edema (trace b/l; left leg is larger than right leg ) Gastrointestinal (Abdomen): normal bowel sounds, soft, nontender, no hepatosplenomegaly Psychiatric: A+Ox3, euthymic affect Results & Data Results & Data ([facility]) Vital Signs (Past 12 Hours) Vital Signs Temp Pulse Pulse Resp BP BP Pulse Ox 05/19/20 19:55 36.8 C 72 18 90/62 L 93 05/19/20 19:10 36.8 C 72 18 107/78 94 05/19/20 18:10 36.8 C 70 18 105/70 92 05/19/20 17:40 36.5 C 60 18 105/52 L 90 05/19/20 17:25 36.6 C 70 18 98/67 L 92 05/19/20 17:07 36.8 C 70 20 109/70 93 05/19/20 17:03 36.8 C 70 20 116/73 92 05/19/20 17:02 70 L Laboratory Results Laboratory Results - last 24 hr 05/18/20 05/19/20 05/19/20 15:24 06:45 07:06 WBC 6.43 RBC 4.85 Hgb 15.3 Hct 47.3 H MCV 97.5 MCH 31.5 MCHC 32.3 RDW Std Deviation 49.7 H RDW Coeff of Sean 14.0 Plt Count 216 MPV 12.8 H D-Dimer Sodium 139 Potassium Chloride 109 H Carbon Dioxide 24 Anion Gap 6.0 BUN 19 H Creatinine 1.06 Est Cr Clr Drug Dosing 51.6 Est GFR ( Amer) 62.9 Est GFR (Non-Af Amer) 54.3 BUN/Creatinine Ratio 18.1 Glucose 101 H Calcium 10.4 H Magnesium AST ALT 12 Blood Type A Positive Antibody Screen NEGATIVE 05/19/20 05/19/20 07:06 07:10 WBC RBC Hgb Hct MCV MCH MCHC RDW Std Deviation RDW Coeff of Sean Plt Count MPV D-Dimer 660 H* Sodium Potassium 4.6 D Chloride Carbon Dioxide Anion Gap BUN Creatinine Est Cr Clr Drug Dosing Est GFR ( Amer) Est GFR (Non-Af Amer) BUN/Creatinine Ratio Glucose Calcium Magnesium 2.3 AST 21 ALT Blood Type Antibody Screen blood cx's negative PG Care Time/CCT Total # of Minutes Spent Total Time Spent with Patient: Total time spent is greater than 50% in coordination of care (as documented) at patient's floor/unit and/or counseling patient: Coding Level of Care Code 72417 Subseq Hosp Care Lvl 3 Diagnoses Pneumonia due to COVID-19 virus U07.1; J12.89 Acute respiratory failure with hypoxia J96.01 UTI (urinary tract infection) N30.00 Hematuria presence: without hematuria Urinary tract infection type: acute cystitis Hyperlipidemia E78.5 Hyperlipidemia type: unspecified Essential hypertension I10 Acute diastolic (congestive) heart failure I50.31 Raynaud's disease I73.00 Raynaud?s-associated gangrene presence: without gangrene DVT prophylaxis Z29.9 (1) UTI (urinary tract infection) Hematuria presence: without hematuria Urinary tract infection type: acute cystitis Qualified Code(s): N30.00 - Acute cystitis without hematuria (2) Raynaud's disease Raynaud?s-associated gangrene presence: without gangrene Qualified Code(s): I73.00 - Raynaud's syndrome without gangrene (3) Hyperlipidemia Hyperlipidemia type: unspecified Qualified Code(s): E78.5 - Hyperlipidemia, unspecified
[2020-05-19] MEDS: cefTRIAXone SODIUM 2,000 MG in DEXTROSE 5% 50 ML IV SCH (21:44)
[2020-05-20 08:02] LABS: BUN Creatinine Ratio 26.7 (10-20); Calcium 10.6 mg/dl (8.5-10.1); Creatinine Clr Calc Pharmacy 53.1 ml/min; Est GFR (African American) 65.1; Est GFR (Non-African American) 56.2; Potassium 4.2 mmol/L (3.5-5.1)
[2020-05-20] MEDS: FAMOTIDINE 20 MG TAB PO SCH (09:05)
[2020-05-20] MEDS: ZINC SULFATE 220 MG CAPSULE PO SCH (09:05)
[2020-05-20] MEDS: ENOXAPARIN INJ 40 MG/0.4 ML SYR SQ SCH ×2 (09:06→20:27)
[2020-05-20] MEDS: DEXAMETHASONE SOD PHOSPHATE 6 MG in SYRINGE 0 ML IV SCH (09:06)
[2020-05-20] MEDS: REMDESIVIR 100 MG in SODIUM CHLORIDE 0.9% 230 ML IV SCH (17:59)
[2020-05-20] MEDS: SODIUM CHLORIDE 0.9% 10ML FLUSH IV SCH (19:15)
--- NOTE | 2020-05-20 21:27 | Hospitalist Progress Note ---
Date of Service May 20, 2020 Assessment & Plan (1) Pneumonia due to COVID-19 virus: Day #3 of decadron. Day #3 of remdesivir. s/p plasma on 05/19/20 - tolerated such. Remains on rocephin for UTI which will cover lungs nicely if any bacterial process is present. Remains with NC O2 requirement - awaiting echo in light of CHF (see below). Cont zinc/pepcid. (2) Acute respiratory failure with hypoxia: 2nd to COVID-19 pneumonia. cannot rule out component of CHF. cannot rule out component of chronic lung disease. Overall o2 sats stable on NC O2. (3) UTI (urinary tract infection): 2nd to staph species. cont IV rocephin 2gm daily add doxy in the event that the staph is coag neg staph await final culture (4) Hyperlipidemia: Chronic. Stable No home medications listed (5) Essential hypertension: Chronic. Stable/controlled, on no meds for such (6) Acute diastolic (congestive) heart failure: still with considerable b/l rales uncertain if rales are due to COVID-19, underlying ILD, or acute CHF could have all 3 Rx her COVID with meds above patient was laying flat in bed today without orthopnea thus hold off on additional diuresis today consider advanced imaging (CT) to r/o chronic ILD or other lung disease (7) Raynaud's disease: noted no issues (8) DVT prophylaxis: lovenox 40mg BID due to COVID-19 infection & high risk of VTE left messages for son this week on his voicemail Admission and Anticipated Discharge Date Admission Date: May 18, 2020 Subjective tolerated plasma yesterday. received lasix post-plasma -- also tolerated such. feeling better today. minimal cough and no dyspnea at rest. no orthopnea. eating starting to improve. no chest or abd pain. staff report patient will be moved to 3rd floor neg pressure room sometime today. Review of Systems Constitutional: no fever, no chills and no fatigue Respiratory: + cough and + dyspnea on exertion; no wheezing Cardiovascular: no chest pain and no edema Gastrointestinal: no abdominal pain, no nausea and no vomiting Physical Exam Constitutional: + ill appearing; no acute distress and no altered mental status ENMT: external ear and nose normal, oropharynx normal Respiratory: no respiratory distress Auscultation: + crackles (extensive left lung, mild right lung base - rales overall much less today); no wheezes Cardiovascular: Rate/Rhythm: regular rate and regular rhythm Heart Sounds: normal S1, normal S2, + gallop (s3) and + murmur (2/6 systolic LSB) Vessels: + JVD (mildly improved today ), posterior tibial pulses present and dorsalis pedis pulses present Extremities: + edema (trace b/l; left leg is larger than right leg ) Gastrointestinal (Abdomen): normal bowel sounds, soft, nontender, no hepatosplenomegaly Psychiatric: A+Ox3, euthymic affect Results & Data Results & Data ([facility]) Vital Signs (Past 12 Hours) Vital Signs Temp Pulse Pulse Resp BP BP Pulse Ox 05/20/20 15:20 92 05/20/20 15:10 88 L 05/20/20 14:52 36.3 C L 69 70 18 122/80 79 L 05/20/20 11:07 36.5 C 61 20 111/73 92 Laboratory Results Laboratory Results - last 24 hr 05/20/20 06:44 Sodium 139 Potassium 4.2 Chloride 109 H Carbon Dioxide 24 Anion Gap 7.0 BUN 28 H Creatinine 1.03 Est Cr Clr Drug Dosing 53.1 Est GFR ( Amer) 65.1 Est GFR (Non-Af Amer) 56.2 BUN/Creatinine Ratio 26.7 H Glucose 113 H Calcium 10.6 H AST 21 ALT 12 PG Care Time/CCT Total # of Minutes Spent Total Time Spent with Patient: Total time spent is greater than 50% in c oordination of care (as documented) at patient's floor/unit and/or counseling patient: Coding Level of Care Code 54544 Subseq Hosp Care Lvl 2 Diagnoses Pneumonia due to COVID-19 virus U07.1; J12.89 Acute respiratory failure with hypoxia J96.01 UTI (urinary tract infection) N30.00 Hematuria presence: without hematuria Urinary tract infection type: acute cystitis Hyperlipidemia E78.5 Hyperlipidemia type: unspecified Essential hypertension I10 Acute diastolic (congestive) heart failure I50.31 Raynaud's disease I73.00 Raynaud?s-associated gangrene presence: without gangrene DVT prophylaxis Z29.9 (1) UTI (urinary tract infection) Hematuria presence: without hematuria Urinary tract infection type: acute cystitis Qualified Code(s): N30.00 - Acute cystitis without hematuria (2) Raynaud's disease Raynaud?s-associated gangrene presence: without gangrene Qualified Code(s): I73.00 - Raynaud's syndrome without gangrene (3) Hyperlipidemia Hyperlipidemia type: unspecified Qualified Code(s): E78.5 - Hyperlipidemia, unspecified
[2020-05-20] MEDS: cefTRIAXone SODIUM 2,000 MG in DEXTROSE 5% 50 ML IV SCH (21:40)
[2020-05-20] MEDS: DOXYCYCLINE HYCLATE 100 MG in DEXTROSE 5% 100 ML IV SCH (23:17)
[2020-05-21 07:02] LABS: BUN Creatinine Ratio 36.7 (10-20); Calcium 9.7 mg/dl (8.5-10.1); Creatinine Clr Calc Pharmacy 67.5 ml/min; Est GFR (African American) 87.1; Est GFR (Non-African American) 75.2; Magnesium 2.3 mg/dl (1.8-2.4); Potassium 4.1 mmol/L (3.5-5.1)
[2020-05-21] MEDS: DEXAMETHASONE SOD PHOSPHATE 6 MG in SYRINGE 0 ML IV SCH (10:28)
[2020-05-21] MEDS: DOXYCYCLINE HYCLATE 100 MG in DEXTROSE 5% 100 ML IV SCH (10:29)
[2020-05-21] MEDS: FAMOTIDINE 20 MG TAB PO SCH (10:35)
[2020-05-21] MEDS: ZINC SULFATE 220 MG CAPSULE PO SCH (10:35)
[2020-05-21] MEDS: ENOXAPARIN INJ 40 MG/0.4 ML SYR SQ SCH ×2 (10:37→21:00)
--- NOTE | 2020-05-21 15:31 | XCELERA ---
[id number] \\[id number]
[2020-05-21] MEDS: REMDESIVIR 100 MG in SODIUM CHLORIDE 0.9% 230 ML IV SCH (16:15)
[2020-05-21] MEDS: SODIUM CHLORIDE 0.9% 10ML FLUSH IV SCH (17:43)
[2020-05-21] MEDS ORDERED: OPTIRAY 320 125ml IV ONE (19:39)
--- NOTE | 2020-05-21 20:06 | CT Scan Report ---
CHEST CTA for PULMONARY ARTERIES CT DOSE: 383.61 mGy.cm HISTORY: Shortness of breath. COVID+; cor pulmonale; eval for PE, ILD, etc. TECHNIQUE: Multiaxial CT images of the chest were performed following the intravenous administration of contrast to evaluate the pulmonary arteries. Maximal intensity projection images were also obtaine d. A dose lowering technique was utilized adhering to the principles of ALARA. COMPARISON STUDY: Chest 05/18/2020. Abdomen and pelvis CT 07/30/2018. FINDINGS: Normal caliber thoracic aorta. Nondiagnostic evaluation for a dissection given the lack of contrast within the aorta. Dense calcification within the proximal left subclavian artery which is li javy occluded. Coarse calcifications within the thyroid gland. Probable subcentimeter nodules within the thyroid gland. Mild mediastinal and bilateral hilar lymphadenopathy. Dominant subcarinal lymph no de measures 1.6 cm in short axis diameter. Normal esophagus. Retrograde opacification of contrast int o the hepatic veins. Limited views of the upper abdomen demonstrate a normal spleen and adrenal gland s. Chronic left hydronephrosis is partially visualized. This remains unchanged compared to the prior abdomen and pelvis CT. The heart is enlarged. No pleural or pericardial effusions. No filling defects within the pulmonary arteries to suggest pulmonary embolus. No fractures within the visualized osseo us structures. No pneumothorax. A few partially opacified bilateral lower lobe segmental bronchi. A f ew scattered peripheral groundglass airspace opacities. This likely represents a viral pneumonia. IMPRESSION: 1. No evidence for pulmonary embolus. 2. A few scattered peripheral groundglass airspace opacities. This likely represents a viral pneumoni a. 3. Mild mediastinal and bilateral hilar lymphadenopathy. This is likely reactive. 4. Dense calcification within the proximal left subclavian artery which is likely occluded. 5. Cardiomegaly. ACT 112: Negative or not required by law. Electronically signed by: Troy Morrissey M.D. 05/21/2020 8:05 PM
[2020-05-21] MEDS ORDERED: cefTRIAXone SODIUM 2,000 MG in DEXTROSE 5% 50 ML IV SCH (21:00)
--- NOTE | 2020-05-21 21:04 | Hospitalist Progress Note ---
Date of Service May 21, 2020 Assessment & Plan (1) Acute respiratory failure with hypoxia: 2nd to COVID-19 pneumonia Cannot rule out a component of chronic hypoxic resp failure 2nd to severe pulm HTN and severe chronic cor pulmonale (see below) either way I anticipate she will need O2 at discharge will need 2-step (2) Pneumonia due to COVID-19 virus: Day #4 of 10 of decadron. Day #4 of 5 of remdesivir. s/p plasma 05/19/20. Improving. CTA chest findings noted. No concrete radiographic evidence of bacterial superinfection on CT today. (3) Pulmonary HTN: severe, with pressure in the 70s. CTA chest without PEs. the high PA pressures coupled with cor pulmonale suggest that these issues are chronic. etiology of pulmonary HTN uncertain. primary/idiopathic? secondary -- severe, undiagnosed BENJAMIN? other? will likely need [place] O2 at discharge. [place] [facility] [place] post[place] for management of this and cor pulmonale. will need additional w/u. (4) Acute on chronic right-sided congestive heart failure: acute component resolved s/p lasix this admission. looks compensated today. echo with severe right-sided CHF. severe pulmonary HTN as well. etiology of pulm HTN and right-sided CHF uncertain. NO PEs. NO ILD/PF on CT. Refer to cardiology post-d/c. (5) UTI (urinary tract infection): 2nd to staph aureus, pansensitive, along with a 2nd staph species. cont IV rocephin until the speciation of 2nd staph is identified. overall clinically improved. can stop doxy. (6) Hyperlipidemia: Chronic. Stable No home medications listed (7) Essential hypertension: Chronic. Stable/controlled, on no meds for such (8) Raynaud's disease: noted (9) Snoring: son, Je, reports long-standing SEVERE snoring sounds like patient has BENJAMIN, and this could have contributed to right heart disease and pulm HTN needs sleep study after d/c (10) DVT prophylaxis: lovenox 40mg BID due to COVID-19 infection & high risk of VTE fortunately her CTA chest was negative for PE today spoke with son Je today - extensive update given anticipate patient can d/c home on Saturday following final dose of remdesivir she will need 2-step O2 test on Saturday Admission and Anticipated Discharge Date Admission Date: May 18, 2020 Subjective patient feeling well today. feels that breathing has returned to baseline. mild RICH. minimal cough. diarrhea resolved. appetite improved. ambulating. patient with numerous questions about her echo today. Review of Systems Constitutional: no fever, no chills and no anorexia Ear, Nose, Mouth, Throat: no loss of taste or smell Respiratory: + dyspnea on exertion; no wheezing Cardiovascular: + dyspnea on exertion; no chest pain, no dyspnea at rest, no orthopnea, no paroxysmal nocturnal dyspnea, no edema and no Raynauds symptoms Physical Exam Constitutional: no acute distress and no altered mental status ENMT: external ear and nose normal, oropharynx normal Respiratory: no respiratory distress Auscultation: + crackles (Mild/mod L base; mild R base); no wheezes Cardiovascular: Rate/Rhythm: regular rate and regular rhythm Heart Sounds: normal S1, normal S2, + gallop (s3) and + murmur (2/6 systolic LSB) Vessels: + JVD, posterior tibial pulses present and dorsalis pedis pulses present Extremities: + edema (trace b/l; left leg is larger than right leg at baseline) Gastrointestinal (Abdomen): normal bowel sounds, soft, nontender, no hepatosplenomegaly Psychiatric: A+Ox3, euthymic affect Results & Data Results & Data ([facility]) Vital Signs (Past 12 Hours) Vital Signs Temp Pulse Resp BP Pulse Ox 05/21/20 16:14 36.3 C L 65 18 133/79 93 Laboratory Results Laboratory Results - last 24 hr 05/21/20 05:32 Sodium 140 Potassium 4.1 Chloride 108 H Carbon Dioxide 29 Anion Gap 3.0 BUN 30 H Creatinine 0.81 Est Cr Clr Drug Dosing 67.5 Est GFR ( Amer) 87.1 Est GFR (Non-Af Amer) 75.2 BUN/Creatinine Ratio 36.7 H Glucose 117 H Calcium 9.7 Magnesium 2.3 AST 16 ALT 13 echo - severe pulm HTN; right ventricular dysfunction; LV function wnl CT chest - large pulmonary artery; reflux contrast into hepatic veins; no PE; b/l infiltrates c/w COVID; no ILD PG Care Time/CCT Total # of Minutes Spent Total Time Spent with Patient: Total time spent is greater than 50% in coordination of care (as documented) at patient's floor/unit and/or counseling patient: Coding Level of Care Code 03533 Subseq Hosp Care Lvl 3 Diagnoses Acute respiratory failure with hypoxia J96.01 Pneumonia due to COVID-19 virus U07.1; J12.89 Pulmonary HTN I27.20 Acute on chronic right-sided congestive heart failure I50.813 UTI (urinary tract infection) N30.00 Hematuria presence: without hematuria Urinary tract infection type: acute cystitis Hyperlipidemia E78.5 Hyperlipidemia type: unspecified Essential hypertension I10 Raynaud's disease I73.00 Raynaud?s-associated gangrene presence: without gangrene Snoring R06.83 DVT prophylaxis Z29.9 (1) UTI (urinary tract infection) Hematuria presence: without hematuria Urinary tract infection type: acute cystitis Qualified Code(s): N30.00 - Acute cystitis without hematuria (2) Raynaud's disease Raynaud?s-associated gangrene presence: without gangrene Qualified Code(s): I73.00 - Raynaud's syndrome without gangrene (3) Hyperlipidemia Hyperlipidemia type: unspecified Qualified Code(s): E78.5 - Hyperlipidemia, unspecified
[2020-05-22 06:15] LABS: Hematocrit (blood only) 40.8 % (37-47); Hemoglobin 13.1 g/dL (12.0-16.0); Mean Corpuscular Hgb Conc 32.1 g/dL (32-36); Mean Corpuscular Volume 96.7 fL (80-100); Mean Platelet Volume 12.1 fL (7.4-10.4); Platelet Count 222 K/uL (130-400); RDW Coefficient of Variation 13.9 % (11.5-14.5); Red Blood Count 4.22 M/uL (4.2-5.4)
[2020-05-22 06:43] LABS: BUN Creatinine Ratio 30.7 (10-20); Calcium 10.4 mg/dl (8.5-10.1); Creatinine Clr Calc Pharmacy 69.2 ml/min; Est GFR (African American) 89.8; Est GFR (Non-African American) 77.5; Potassium 4.4 mmol/L (3.5-5.1)
[2020-05-22] MEDS: ZINC SULFATE 220 MG CAPSULE PO SCH (08:29)
[2020-05-22] MEDS: ENOXAPARIN INJ 40 MG/0.4 ML SYR SQ SCH (08:30)
[2020-05-22] MEDS: DEXAMETHASONE SOD PHOSPHATE 6 MG in SYRINGE 0 ML IV SCH (08:31)
[2020-05-22] MEDS: FAMOTIDINE 20 MG TAB PO SCH (09:14)
--- NOTE | 2020-05-22 13:43 | Discharge Summary ---
Date of Service May 22, 2020 Admission HPI Per Admitting Provider Monserrat Castillo is a pleasant 69yo C female with history of HTN, HLP presenting with Covid-19. 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 She reports multiple staff members and residents positive for Covid-19. Patient developed watery diarrhea two days ago. She has mild shortness of breath. She is tested routinely at work and was last tested 4 days ago and was negative. Denies CP/Palpitations/cough/loss of taste or smell Patient's saturations in triage found to be 77% on room air - however, she states that because of her Raynaud's her saturations are always low. An additional pulse oximeter was placed and she was found to be 84% on room air with adequate wave form. She improved with supplemental O2 and is currently 94% on 4L. Patient wishes to be discharged home as soon as possible and is confident that she can care for herself at home. Principal Diagnosis Pt feels she is doing much better. She still feels a bit fatigued and SOB with being out of bed for prolonged periods of time, but otherwise no SOB at rest on O2. Pt denies fever, chest pain, n/v/c/d, LE pain or swelling. She is having occasional abd cramping, but this resolves with zofran. Tolerating PO without other issues. Discharge Exam Constitutional WD/WN, vitals as above Eyes normal visual dey by confrontation and + anicteric sclerae Neck normal visual inspection and trachea midline Respiratory normal respiratory effort, lungs clear to auscultation Cardiovascular Rate/Rhythm: regular rate and regular rhythm Gastrointestinal (Abdomen) Inspection/Auscultation: abdomen not distended Percussion/Palpation: abdomen soft; abdomen nontender Musculoskeletal Head/Neck/Chest: normocephalic and head atraumatic Skin no rashes, warm and dry Neurologic awake; not confused Speech / Cognition: normal speech Psychiatric A+Ox3, euthymic affect Discharge Data Allergies Allergy/AdvReac Type Severity Reaction Status Date / Time No Known Allergies Allergy Verified 05/18/20 03:54 Ordered Studies 05/21/20 15:56 CT angio chest PE protocol Urgent Hospital Course (1) Acute respiratory failure with hypoxia: 2nd to COVID-19 pneumonia Cannot rule out a component of chronic hypoxic resp failure 2nd to severe pulm HTN and severe chronic cor pulmonale (see below) 2 step on d/c with recs for home O2, 2L continuous with 4L for ambulation (2) Pneumonia due to COVID-19 virus: Completed 11/07 of decadron, will complete as outpt Completed 5 day course of remdesivir. s/p plasma 05/19/20. Improving. CTA chest findings noted. No concrete radiographic evidence of bacterial superinfection on CT today. (3) Pulmonary HTN: severe, with pressure in the 70s. CTA chest without PEs. the high PA pressures coupled with cor pulmonale suggest that these issues are chronic. etiology of pulmonary HTN uncertain. primary/idiopathic? secondary -- severe, undiagnosed BENJAMIN? other? Home O2 as above refer to [facility] [place] cardiology and pulmonary post-discharge for management of this and cor pulmonale. will need additional w/u. Pt declined having appts set up on d/c (4) Acute on chronic right-sided congestive heart failure: acute component resolved s/p lasix this admission. looks compensated today. echo with severe right-sided CHF. severe pulmonary HTN as well. etiology of pulm HTN and right-sided CHF uncertain Pt reported hx of RICH far prior to COVID dx NO PEs. NO ILD/PF on CT. Refer to cardiology post-d/c. (5) UTI (urinary tract infection): 2nd to staph aureus, pansensitive, along with a 2nd staph species. cont IV rocephin until the speciation of 2nd staph is identified. overall clinically improved. can stop doxy. (6) Hyperlipidemia: Chronic. Stable No home medications listed (7) Essential hypertension: Chronic. Stable/controlled, on no meds for such (8) Raynaud's disease: noted no issues (9) Snoring: sonJe, reports long-standing SEVERE snoring sounds like patient has BENJAMIN, and this could have contributed to right heart disease and pulm HTN needs sleep study after d/c Declined assistance in setting up appt (10) DVT prophylaxis: lovenox 40mg BID due to COVID-19 infection & high risk of VTE fortunately her CTA chest was negative for PE Total Time Total Time Spent Total Time Spent (In Minutes): >30 Total Time Includes: Examination of the Patient, Discharge Planning, Medication Reconciliation, Communication With Other Providers and Other Discharge Plan Discharge Items Patient Disposition: Home - Self-Care Reason For Visit: COVID-19, HYPOXIA Discharge Diagnosis: COVID-19 Condition on Discharge: Good Activity: Resume your previous activity Non-emergency contact: Primary Care Provider and Quarter Seamer Call non-emergency contact if: you have any medication questions and your symptoms worsen Follow-up/Referrals: Celine Hammond MD [Primary Care Provider] - Diet: Regular Addtl Attending Provider Instructions: You should be seen by a strategic account manager in the next 1-2 weeks You should be seen by a band sawmill operator in the next 1-2 weeks You will need to have a sleep study in the next 1-2 months You will be taking zinc for the next month. A sign that you are taking too much zinc is a metallic taste in your mouth. If you start to notice this, you should stop taking the zinc. Pending Studies at Discharge: No Stand-Alone Forms: My [employer], Smoking Cessation Medications and DC Order Prescriptions: New dexamethasone 6 mg tablet 6 mg PO DAILY Qty: 5 RF: 0 ondansetron HCl [Zofran] 4 mg tablet 4 mg PO Q8H 5 Days Qty: 15 RF: 0 zinc sulfate 220 mg tablet 220 mg PO DAILY Qty: 30 RF: 0 No Action No Known Home Medications RF: 0 Discharge Orders: Discharge Order (Routine); Ordered 05/22/20 Ordered By: eKlsy Martel Admission Data Admit Date/Time: 05/18/20 04:38 Attending Provider: Kelsy Martel Admit Provider: Sydni Cohen Primary Care Provider: Celine Hammond Other Interventions: Discharge Summary Assessment (RN) Last Done: 05/22/20 13:56 Coding Level of Care Code D/C Day Management >30 mins Diagnoses Acute respiratory failure with hypoxia J96.01 Pneumonia due to COVID-19 virus U07.1; J12.89 Pulmonary HTN I27.20 Acute on chronic right-sided congestive heart failure I50.813 UTI (urinary tract infection) N30.00 Hematuria presence: without hematuria Urinary tract infection type: acute cystitis Hyperlipidemia E78.5 Hyperlipidemia type: unspecified Essential hypertension I10 Raynaud's disease I73.00 Raynaud?s-associated gangrene presence: without gangrene Snoring R06.83 DVT prophylaxis Z29.9
[2020-05-22] MEDS: REMDESIVIR 100 MG in SODIUM CHLORIDE 0.9% 230 ML IV SCH (14:37)
== END 2020-05-22 18:30 | disposition home or self-care (01) | DRG 177 ==
LOC: ED 01:45 → 2S 04:38 → SUATTDRO 04:38 → 2S 05:39 → 3N 05-20 12:00